=== PATIENT | male | born 1960 | race Caucasian/White ===

== ENCOUNTER 2019-08-25 13:03 | Inpatient (IN) ==
[2019-08-25] MEDS ORDERED: PROPOFOL 10 MG/1 ML (200 MG/20 ML) VIAL IV ONE (13:06)
[2019-08-25] MEDS ORDERED: MIDAZOLAM HCL 2 MG/2 ML VIAL ONE (13:06)
[2019-08-25] MEDS ORDERED: fentaNYL Inj 100 MCG/2 ML VIAL ONE (13:08)
[2019-08-25] MEDS ORDERED: Lactated Ringers 1,000 ML PRIMARY IV ONE (13:13)
[2019-08-25] MEDS ORDERED: LIDOCAINE HCL 1%/EPI 1:100,000 - 20 ML VIAL SUBCUT ONE (13:17)
[2019-08-25] MEDS ORDERED: LIDOCAINE W/ SODIUM BICARB 0.5 ML SYR SUBD PRN (14:37)
[2019-08-25] MEDS ORDERED: ONDANSETRON 4 MG/2 ML VIAL IVP PRN (14:37)
[2019-08-25] MEDS ORDERED: DOCUSATE 100 MG CAPSULE PO PRN (14:37)
[2019-08-25] MEDS: Amoxicill/Clav 875/125mg Tab 1 TAB TAB PO SCH ×2 (16:05→21:13)
[2019-08-25] MEDS: oxyCODONE-ACETAMINOPHEN 5-325 TAB PO PRN ×3 (16:08→23:53)
[2019-08-25] MEDS: ARFORMOTEROL NEB SOLN 15 MCG/2 ML NEB SCH (18:16)
[2019-08-25] MEDS: BUDESONIDE 0.25 MG/2 ML AMPUL.NEB NEB SCH (18:19)
[2019-08-25] MEDS ORDERED: Naproxen Tab 500 MG TAB PO PRN (21:00)
[2019-08-25] MEDS: FAMOTIDINE 20 MG TABLET PO SCH (21:13)
[2019-08-26] MEDS: oxyCODONE-ACETAMINOPHEN 5-325 TAB PO PRN ×5 (04:00→21:56)
[2019-08-26 05:33] LABS: BASOPHILS # (AUTO) 0.05 10*3/UL; BASOPHILS % (AUTO) 0.6 % (0-1); EOSINOPHILS # (AUTO) 2.07 10*3/UL; EOSINOPHILS % (AUTO) 23.4 % (0-8); Hematocrit [HCT] 42.8 % (42.0-52.0); Hemoglobin [HGB] 13.8 g/dL (14.0-18.0); LYMPHOCYTES # (AUTO) 2.24 10*3/uL; MEAN CORPUSCULAR HGB CONC 32.2 g/dL (33-37); MEAN CORPUSCULAR VOLUME 92.6 FL (80-90); MONOCYTES # (AUTO) 0.56 10*3/UL (0.3-0.8); MONOCYTES % (AUTO) 6.3 % (5-15); NEUTROPHILS # (AUTO) 3.87 10*3/UL; NEUTROPHILS % (AUTO) 43.8 % (50-80); RED BLOOD COUNT 4.62 10^6/uL (4.70-6.10)
[2019-08-26 05:49] LABS: BLOOD UREA NITROGEN 21 mg/dL (7-22); BUN/CREATININE RATIO 23.33 (6-20); PLATELET MORPHOLOGY COMMENT NORMAL MORPHOLOGY (NORM); RBC MORPHOLOGY COMMENT NORMAL MORPHOLOGY (NORM); WBC MORPHOLOGY COMMENT NORMAL MORPHOLOGY (NORM)
[2019-08-26] MEDS: ARFORMOTEROL NEB SOLN 15 MCG/2 ML NEB SCH (07:10)
[2019-08-26] MEDS: BUDESONIDE 0.25 MG/2 ML AMPUL.NEB NEB SCH (07:10)
[2019-08-26] MEDS: Amoxicill/Clav 875/125mg Tab 1 TAB TAB PO SCH ×2 (09:04→21:55)
[2019-08-26] MEDS: FAMOTIDINE 20 MG TABLET PO SCH ×2 (09:05→21:55)
[2019-08-26] MEDS ORDERED: HYDROmorphone 2 MG/1 ML IVP PRN (10:58)
[2019-08-26] MEDS: Naproxen Tab 500 MG TAB PO SCH ×2 (11:17→21:55)
[2019-08-27] MEDS: oxyCODONE-ACETAMINOPHEN 5-325 TAB PO PRN ×4 (02:03→18:52)
[2019-08-27] MEDS: FAMOTIDINE 20 MG TABLET PO SCH ×2 (08:10→20:09)
[2019-08-27] MEDS: Naproxen Tab 500 MG TAB PO SCH ×2 (08:10→20:09)
[2019-08-27] MEDS: Amoxicill/Clav 875/125mg Tab 1 TAB TAB PO SCH ×2 (08:10→20:09)
[2019-08-28] MEDS: oxyCODONE-ACETAMINOPHEN 5-325 TAB PO PRN ×6 (00:08→22:32)
[2019-08-28] MEDS: Naproxen Tab 500 MG TAB PO SCH ×2 (09:30→20:36)
[2019-08-28] MEDS: FAMOTIDINE 20 MG TABLET PO SCH ×2 (09:30→20:36)
[2019-08-28] MEDS: Amoxicill/Clav 875/125mg Tab 1 TAB TAB PO SCH ×2 (09:31→20:35)
[2019-08-29] MEDS: oxyCODONE-ACETAMINOPHEN 5-325 TAB PO PRN ×6 (03:12→23:30)
[2019-08-29] MEDS: Naproxen Tab 500 MG TAB PO SCH ×2 (08:21→20:57)
[2019-08-29] MEDS: FAMOTIDINE 20 MG TABLET PO SCH ×2 (08:22→20:58)
[2019-08-30] MEDS: oxyCODONE-ACETAMINOPHEN 5-325 TAB PO PRN ×3 (04:15→13:29)
[2019-08-30] MEDS: Naproxen Tab 500 MG TAB PO SCH (09:12)
[2019-08-30] MEDS: FAMOTIDINE 20 MG TABLET PO SCH (09:12)
[2019-08-30 13:10] VITALS: BP 103/83; RESP 19; TEMP 97.3; O2SAT 93
== END 2019-08-30 13:35 | DRG 200 ==
LOC: ER 13:03 → MED/SURG 14:25
PROVIDERS: ADMIT Surgery; ATTEND Surgery